=== PATIENT | female | born 1955 | race Caucasian/White ===

== ENCOUNTER → 2017-02-16 13:52 | Emergency (ER) | payer BC ==
--- NOTE | 2017-02-16 14:39 | RAD ---
INDICATION: Left knee pain. TECHNIQUE: 2 views of the left knee were obtained. FINDINGS: The bones are normal alignment. No joint effusion or fracture is seen. There is a calcification present in the soft tissues lateral to the lateral compartment measuring 6 mm in size. There is mild osteoarthritic change in the patellofemoral and medial compartments. IMPRESSION: MILD OSTEOARTHRITIC CHANGE.
[2017-02-16 16:16] VITALS: BP 135/73
--- NOTE | 2017-02-17 09:51 | ED ---
Lower Extremity - HPI Summary HPI Summary: Patient presents to the ED with CC of left knee pain after twisting wrong yesterday. She has been unable to ambulate since that time. She notes to laxity in the joint and feeling unstable. Pain while trying to bear weight, but otherwise denies pain. Pain is discretely located over the medial aspect of the knee. No color or temperature changes seen. Bilateral knees with edema , but patient states this is baseline. She also has osteoarthritis in bilateral knees. Denies fevers, sweats or chills. - History of Current Complaint Chief Complaint: EDExtremityLower Stated Complaint: LT KNEE PAIN Time Seen by Provider: 02/16/17 14:06 Hx Obtained From: Patient Mechanism Of Injury: Twisted Onset of Pain: Immediate Onset/Duration: Hours Severity Initially: Moderate Severity Currently: Moderate Pain Intensity: 9 Pain Scale Used: 0-10 Numeric Timing: Constant Location: Is Discrete @ - left medial knee Associated Signs And Symptoms: Positive: Negative. Negative: Swelling, Redness , Bruising, Weakness, Dizziness Aggravating Factor(s): Standing, Ambulation Alleviating Factor(s): Rest, Elevation Able to Bear Weight: Yes - Risk Factors Gout Risk Factors: Age Over 40 DVT Risk Factors: Negative Septic Arthritis Risk Factor: Negative - Allergies/Home Medications Home Medications: Home Medications Amoxicillin/Clavulanate TAB* [Augmentin TAB 875*] 875 mg PO BID 02/16/17 [ History Confirmed 02/16/17] Hydrochlorothiazide TAB* [Hydrodiuril TAB*] 25 mg PO DAILY 02/16/17 [History Confirmed 02/16/17] Ibuprofen [Advil] 600 mg PO 02/16/17 [History] Loratadine & Pseudoephedrine [Claritin-D 24 Hour 10-240 mg] 1 tab PO 02/16/17 [ History] PMH/Surg Hx/FS Hx/Imm Hx Previously Healthy: Yes - Immunization History Date of Tetanus Vaccine: 2014 Date of Influenza Vaccine: 2016 Immunizations Up to Date: No Infectious Disease History: No Infectious Disease History: Denies: Traveled Outside the [place] in Last 30 Days - Social History Occupation: Employed Full-time Lives: With Family Alcohol Use: Occasionally Hx Substance Use: No Substance Use Type: Reports: None Hx Tobacco Use: No Smoking Status (MU): Never Smoked Tobacco Review of Systems Constitutional: Negative Negative: Fever, Chills, Fatigue ENT: Negative Cardiovascular: Negative Respiratory: Negative Genitourinary: Negative Positive: no symptoms reported, see HPI Positive: Arthralgia - left medial knee Negative: Rash, Bruising Neurological: Negative All Other Systems Reviewed And Are Negative: Yes Physical Exam Triage Information Reviewed: Yes Vital Signs On Initial Exam: Initial Vitals Temp Pulse Resp BP Pulse Ox 98.4 F 70 20 136/87 98 02/16/17 14:02 02/16/17 14:02 02/16/17 14:02 02/16/17 14:02 02/16/17 14:02 Vital Signs Reviewed: Yes Appearance: Positive: Well-Appearing, Well-Nourished Skin: Positive: Warm, Skin Color Reflects Adequate Perfusion Head/Face: Positive: Normal Head/Face Inspection Eyes: Positive: EOMI, WINSOME, Conjunctiva Clear Neck: Positive: Supple, No Lymphadenopathy Respiratory/Lung Sounds: Positive: Clear to Auscultation, Breath Sounds Present Musculoskeletal: Positive: Pain @ - medial left knee pain Neurological: Positive: Sensory/Motor Intact, Alert, Oriented to Person Place, Time, Speech Normal Psychiatric: Positive: Normal - [place] Coma Scale Coma Scale Total: 15 Diagnostics - Vital Signs Vital Signs Temp Pulse Resp BP Pulse Ox 02/16/17 16:14 60 18 135/73 98 02/16/17 14:02 98.4 F 70 20 136/87 98 - Laboratory Lab Statement: Any lab studies that have been ordered have been reviewed, and results considered in the medical decision making process. Lower Extremity Course/Dx - Course Course Of Treatment: Patient evaluated for left medial knee pain after twisting injury. Thorough physical exam was performed, focusing on knee special tests. Pain on palpation over medial aspect and superior aspect of knee with mild amount of effusion. Due to patient pain around injury, physical exam was limited. Valgus and varus force without pain. No posterior sag sign, - posterior drawer test, - anterior drawer test. Quadriceps active test negative. Mcmurrys test not performed. No laxity in the joint noted. No temperature change or pallor noted bilaterally. No ecchymosis noted over knee. No lesion or disruption of skin is seen. Unable to bear weight d/t instability. Pulses intact bilaterally. Patient sent to imaging. Xray negative for fracture or other acute findings. Patient given knee immobilizer to allow for immobilization for this period of time. Crutches given. Patient given orthopedic follow up in 5-7 days. She states she will return to her ortho in [place] , so referral is not given. Encouraged Ibuprofen 600mg three times daily with meals for pain. Return precautions given. Educated patient regarding knee injuries and healing time and the possibility of further evaluation and imaging as orthopedist sees fit. Discussed treatment options available to the patient. They understand at this time and voice no concerns over discharge plan. Return precautions are explained in depth and patient agrees to follow up if needed. - Diagnoses Differential Diagnosis/HQI/PQRI: Positive: Sprain, Strain, Other - ACL, MCL Provider Diagnoses: Knee pain Discharge - Discharge Plan Condition: Stable Disposition: HOME Patient Education Materials: Muscle Strain (ED), ACL Injury (ED) Referrals: Non Staff,Doctor [Primary Care Provider] - Additional Instructions: Please follow up with your PCP or orthopedics when you return Call tomorrow for appt Ibuprofen 600mg three times daily Rest Elevate Ice Do not bear weight until follow up with ortho. Unsure if you have a ligament tear - but I have given you information on ACL injuries
== END | disposition home or self-care (01) ==
LOC: ED 13:52
DX: M25.562 Pain in left knee (principal); M17.0 Bilateral primary osteoarthritis of knee
CPT/HCPCS: 99282